=== PATIENT | male | born 2005 | race Two or more races ===

== ENCOUNTER 2025-05-31 11:04 | Emergency (ER) | payer OTHER, SELFPAY ==
--- OUTSIDE RECORDS SUMMARY | 2021-01-04 09:47 | XMS_ITS | Continuity of Care Document ---
Author Organization [facility] Address [address] [place] [address] Phone Care Team Providers Care Equities Analyst Name Role Phone Unavailable Unavailable Unavailable Allergies, Adverse Reactions, Alerts Substance Reaction Status Criticality No Known Allergies Active No Inform ation Medications Medication Instructions Dosage Effective Dates (start - stop) Status Comments albuterol sulfate HFA 90 mcg/actuation aerosol inhaler inhale 1 puff by inhalation route every 4 - 6 hours as needed - Active Procedures Procedure Date OFFICE/OUTPATIENT VISIT, EST Immun admin-adult or WO counseling-each add vaccine/toxoid aft 44693 VFC-TDAP VACC 7 YR/> IM Immun admin-adult or WO counseling - fir st vaccine/toxoid VFC-POLIOVIRUS VACCINE, INACTIVATED, (IP V), SUBQ USE Immun admin-adult or WO counseling-each add vaccine/toxoid aft 78785 VFC-Flulaval, Preservative Free, 3-18 Ye ars, Quadrivalent Voided Encounter OFFICE/OUTPATIENT VISIT, NEW Advance Directives Directive Yes / No Effective Date File Name No Information Encounters Encounter Description Practice Location Reason(s) For Visit Diagnoses Date Provider Providers Copied on Encounter [facility], [address], [place], [place], [id number] , tel:[phone] Maximo On Lemp Well child (chief complaint) No Information 1 No Information OFFICE/OUTPA TIENT VISIT, EST [facility], [address], [place], [place], [id number] , tel: [phone] Urgent Care immunization (chief complaint)deangelo k pain (chief complaint)no pain now (chief complaint) BMI pediatric, 5th percentile to less than 85% for ageLow back painEncounter for immunization 0 Chris Nair. [address], [place], [place], [address], [place]. tel:[phone] Referring Provider: Joanie Perez, [address], [place], [address] . tel:[phone] [facility], [address], [place], [place], [address] , tel:[phone] Lewis Maximo On Lemp shortness of breath/new patient visit (chief complaint) No Information 0 Theresa Luz. [address], [place], [place], [id number], [place]. tel:[phone] OFFICE/OUTPA TIENT VISIT, NEW [facility], [address], [place], [place], [address] , tel: [phone] Urgent Care Shortness of breath (chief complaint) Dyspnea, unspecifiedLymp hadenopathyChes t pain, unspecified 9 Hipolito Jones. [address], [place], [place], [id number], . [phone] Family History Family Member Type Diagnosis Age At Onset No Information Immunizations Vaccine Date Status Comments Fluzone/Flulaval/Fluarix Rudolph d (Influenza, 6 months and older, preservative free) administered Note: TOLERATE D WELL. ; Source: New Immunization Record Adacel/Boostrix (Tdap) administered Note: TOLERATED WELL. ; Source: New Immunization Record IPOL (IPV) administered Note: TOLERATED WELL. ; Source: New Immunization Record Payers Payer name Insurance type Covered republican ID Authoriza tion(s) No Information Social History Type Description Quantity Date Captured Comments Sex Male Smoking Status No Information Chief Complaint And Reason For Visit From encounter dated '01/04/2021 15:47'. Well child (chief complaint) Reason For Referral Reason For Referral No Information Plan Of Treatment Date Type Action Status Nutrition Recommendation Nutrition educat ion completed History Of Present Illness Encounter Date Complaint History Of e nt Illness Well child immunization for immunization no pain now back pain Severity level i s mild-moderate. It occurs intermittently. Location of pain is lower back. Symptoms are aggravated by extension and flexion. Additional information: 5 months ago back pian. shortness of breath/ new patient visit Shortness of breath Onset of sym ptoms was 2 months ago. Episodes occur daily. The patient notes chest pressure, difficulty getting air out, no discomfort with activity and chest tightness. Denies aggravating factors. Denies relieving factors. Associated symptoms include chest pressure/discomfort and fatigue. Pertinent negatives include anxiety, chills, dry cough, excessive sputum, fever, hemoptysis, lower extremity edema, neuromuscular weakness, night sweats, productive cough and wheezing. Additional information: almost daily; usual in afternoon while just sitting at school; no worse w/physical activity; occasionally at night when trying to sleep; denies cough or wheezing; denies night time awakening w/sxs Functional Status Date Functional Assessmen t No Information Instructions Date Instruction Additional Infor kevyn exam benign pian not rep[reducible exercises flu with PMD Related to Low back pain Assessments Type Assessment Date No Information Patient Care Teams Name Effective Dates (start - stop) Status Members No Information
[2025-05-31 11:13] VITALS: BP 126/72; PULSE 64; RESP 16; TEMP 36.9; O2SAT 100
--- NOTE | 2025-05-31 12:36 | ED.WOUNDLAC ---
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 Active bleeding noted on arrival and pressure dressing applied. Patient reports that he put powder on the wound to help stop the bleeding and dressing. Patient states that tetanus is up to date. He is right hand dominant. Patient has no noted injury to nail. Onset (ago): hour(s) (within past hour) Extremity Location: Left: hand (tip of left thumb) Place: work Patient tetanus UTD: Yes Treatments prior to arrival: other (put powder in wound to help stop bleeding and applied dressing) Related Data Allergies Allergy/AdvReac Type Severity Reaction Status Date / Time No Known Allergies Allergy Verified 05/31/25 11:23 Review of Systems Review of Systems: CONSTITUTIONAL: Denies fever, chills, or sweats.anxious CARDIOVASCULAR: Denies chest pain, palpitations, or edema. RESPIRATORY: Denies cough or dyspnea. SKIN: Reports laceration to the tip of his left thumb while cutting vegetables at work MUSCULOSKELETAL: Denies musculoskeletal pain NEUROLOGIC: Denies numbness, or weakness. All systems reviewed & are unremarkable except as noted in HPI and below PMFSH Comments At time of signature, agree with nursing past medical, surgical, social and family history. There is no relevant family history pertinent to the presenting complaint Exam Narrative: GENERAL: Well-appearing, well-nourished, and in no acute distress. HEAD: Normocephalic, atraumatic. NECK: Supple.no lymphadenopathy CHEST: Clear to auscultation. No respiratory distress.SAO2 100% on room air HEART: Regular rate and rhythm. No murmur heard. Normal peripheral pulses. EXTREMITIES: Normal range of motion. No edema. SKIN: Warm, dry, no rash. Reports 1 cm flap type of wound to the distal tip of his left thumb wound cleansed and irrigated well and pressure dressing applied to obtain hemostasis, no injury to nail see procedure note NEURO: No focal deficits. Alert and oriented x3. Course Course Level of Care: Express Care Visit Vital Signs Vital signs: Vital Signs Temperature 36.9 C 05/31/25 11:13 Pulse Rate 64 05/31/25 11:13 Respiratory Rate 16 05/31/25 11:13 Blood Pressure 126/72 05/31/25 11:13 Pulse Oximetry 100 05/31/25 11:13 Oxygen Delivery Room Air 05/31/25 11:13 Temperature 36.9 C 05/31/25 11:13 Pulse Rate 64 05/31/25 11:13 Respiratory Rate 16 05/31/25 11:13 Blood Pressure 126/72 05/31/25 11:13 Pulse Oximetry 100 05/31/25 11:13 Oxygen Delivery Room Air 05/31/25 11:13 Procedures Laceration thumb dstal tip: Date: 05/31/25 Time: 13:00 Site: hand (distal thumb tip) Side (If applicable): left Size (cm): 1 Description: flap Depth: simple, single layer Local Anesthetic: none Pre-repair: wound explored, irrigated and other (wound care cleanser) ====== Skin Level ====== Skin layer closed with: dermabond and steri strips ====== Subcutaneous Layer ====== ====== Muscle Layer ====== ====== Tendon Layer ====== Dressing: wound cleansed and irrigated copiously, flap repaired with skin glue and steri strips followed with band-aide and tub gauze covering.Tolerated well,no injury to nail. MDM - Wound/Laceration MDM Narrative Medical decision making narrative: Wound explored for foreign body and copious irrigation provided with no evidence of FB. Discussed the potential of retained foreign body with the patient and signs/symptoms that should prompt the patient to immediately go to the ED for reevaluation. The wound was explored and no foreign bodies were found. There was no evidence of tendon or nerve lacerations. The wound was closed per procedure note. A sterile dressing was then applied and anticipatory guidance was provided. Tetanus prophylaxis [(was/was not)] given Differential Diagnosis Differential diagnosis: Likely laceration, abrasion, avulsion of skin and other (laceration of tip of left thumb) Medical Records Attestation: I reviewed the patient's medical records. Critical Care Time Critical Care Time Critical Care Time: No Discharge Plan Discharge Clinical Impression: Laceration of thumb Qualifiers: Encounter type: initial encounter Damage to nail status: without damage Foreign body presence: without foreign body Laterality: left Qualified Code(s): S61.012A - Laceration without foreign body of left thumb without damage to nail, initial encounter Patient Disposition: Home Condition: Stable Instructions: Antibiotic Form, Laceration (ED) Additional Instructions: keep dressing in place to left thumb for the next 48 hours, then dressing of choice Let steri strips fall off on there own Cephalexin antibiotic as ordered complete all doses Keep finger clan and dry Keep the area clean and dry No continuous water contact like dishes or swimming You may bathe and wash you hair caution with hair products or lotions dressing of choice watch for infection--redness, swelling, drainage recheck with PCP if further concerns or problems Patient Language: Mexican Prescriptions: New cephalexin 500 mg capsule 500 mg PO Q12H Qty: 20 0RF Follow-up/Referrals: PHYSICIAN,APPRENTICE JOCKEY [Primary Care Provider, Internal Medicine] Time of Disposition: 13:16 Quality Dhiraj Coma Scale Eyes: Open Verbal: Oriented and Alert Motor: Follows Commands Dhiraj Coma Total Score: 15
== END 2025-05-31 13:21 | disposition home or self-care (01) ==
PROVIDERS: Emergency Provider Registered Nurse
DX: S61.012A Laceration without foreign body of left thumb without damage to nail, initial encounter (principal); W45.8XXA Other foreign body or object entering through skin, initial encounter; Y93.G1 Activity, food preparation and clean up; Y99.0 Civilian activity done for income or pay
CPT/HCPCS: 12001; 99213; G0463